=== PATIENT | male | born 2005 | race Caucasian/White ===

== ENCOUNTER 2025-03-04 09:50 | Outpatient (AMB) | payer BC, SELFPAY ==
--- NOTE | 2025-03-04 10:13 | MHC.PC.OV ---
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 Allergies naproxen [From Aleve] Allergy (Intermediate, Verified 03/04/25 10:18) Hives Medication List - Last Reconciled 03/04/25 by Richard Simmons MD albuterol sulfate 90 mcg/actuation 2 puffs inhalation Q6H PRN cetirizine (Zyrtec) 10 mg PO DAILY PRN fluticasone propionate 50 mcg/actuation (Flonase Allergy Relief) 1 spray intranasal DAILY lisdexamfetamine (Vyvanse) 20 mg PO DAILY Tobacco use date assessed: 03/04/25 Dental Screening Dental Screen Date: 03/04/25 Did you have a dental visit in the last 12 months?: No Did you have a dental problem in the last 6 months where you did not have access to dental care?: No Was dental information given to patient?: No 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 ?? Prior PCP:? Dr Soto @ [facility] Last office visit/CPE:? 1 yr Acute issue(s):? Est CAre ?? 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 Seasonal Allergy induced Asthma. SurgHx:?[place] teeth FHx:?Dad: Pancreatic CA. Mom: Asthma, Vertigo. SocHx:? Nonsmoker. EtOH 1-2 times a week 3 dr per episode. No drugs PFSH Medical History (Updated 03/04/25 @ 11:01 by Noe Pavon) Sinusitis Family History (Updated 03/04/25 @ 10:36 by Josefina Alba [facility] Mother Asthma High cholesterol Diabetes Maternal Grandmother High blood pressure High cholesterol Maternal Grandfather High blood pressure High cholesterol Prostate cancer Father High cholesterol Prostate cancer Paternal Grandfather High cholesterol Cardiovascular disease Alcoholism Social History Housing: House Patient Tobacco Use Status: Never used Tobacco e-Cigarette/Vaping Use: Never Used service: No Current occupational status: employed 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 1. Little interest or pleasure in doing things: not at all 2. Feeling down, depressed, or hopeless: not at all 3. Trouble falling or staying asleep, or sleeping too much: not at all 4. Feeling tired or having little energy: not at all 5. Poor appetite or overeating: not at all 6. Feeling bad about yourself - or that you are a failure or have let yourself or your family down: not at all 7. Trouble concentrating on things, such as reading the newspaper or watching television: not at all 8. Moving or speaking so slowly that other people could have noticed. Or the opposite - being so fidgety or restless that you have been moving around a lot more than usual: not at all 9. Thoughts that you would be better off or of hurting yourself in some way: not at all Total score: 0 Depression Screening Interpretation: Negative Depression Screening Done: Yes 84472 - PHQ-9 Billing: Yes Source: Developed by Drs. Samuel Maciel, Alison Rush, Carlo Goss and colleagues, with an educational shira from [employer]. Thrive Questionnaire Date Thrive assessed: 03/04/25 I am a: Patient What is your living situation today?: I have a steady place to live Within the past 12 months, did the food you bought not last and you didn't have the money to get more?: Never true Within the past 12 months, did you worry whether your food would run out before you got money to buy more?: Never true Do you have trouble paying for medicines?: No Do you have trouble getting transportation to medical appointments?: No Do you have trouble paying your heating and electricity bill?: No Do you have trouble taking care of your child, family member or friend?: No Do you have trouble with day-to-day activities such as bathing, preparing meals, shopping, managing finances, etc.?: No Are you currently unemployed and looking for a job?: No Are you interested in more education?: No Please select the resources that you would like help with: None Currently or been in a relationship where the following occur: No concerns reported THRIVE Score: 0 AUDIT C Alcohol Use Questionnaire (AUDIT-C) 1. How often do you have a drink containing alcohol?: 2-4 times a month 2. How many drinks containing alcohol do you have on a typical day when you are drinking?: 3 or 4 3. How often do you have six or more drinks on one occasion?: Never Total Score: 3 Score Reviewed/Action Taken: Yes SANYA-7 AMB Questionnaire SANYA-7 Date SANYA - 7 assessed: 03/04/25 Feeling nervous, anxious, or on edge: 0 = Not at all Not being able to stop or control worryin = Not at all Worrying too much about different things: 0 = Not at all Trouble relaxin = Not at all Being so restless that it is hard to sit still: 0 = Not at all Becoming easily annoyed or irritable: 0 = Not at all Feeling afraid as if something awful might happen: 0 = Not at all Total SANYA-7 score (0-4 normal; 5-9 mild; 10-14 moderate; 15-21 severe): 0 Source: Developed by Drs. Samuel Maciel, Alison Rush, Carlo Goss and colleagues, with an educational shira from [employer]. Review of Systems Const Denies chills, Denies fatigue, Denies fever(s), Denies headache(s) and Denies weakness Eyes Denies change in vision ENT Denies dizziness and Denies headache(s) Card Denies chest pain, Denies lightheadedness, Denies dyspnea and Denies other (Palpitations) Resp Denies cough, Denies dyspnea, Denies wheezing and Denies other ( shortness of breath) GI Denies abdominal pain, Denies melena, Denies hematochezia, Denies change in bowel habits, Denies dyspepsia and Denies nausea Denies hematuria and Denies dysuria Musc Denies numbness and Denies tingling Skin/Breast Denies rash, Denies unusual bruising and Denies wounds Neuro Denies dizziness, Denies headache(s), Denies numbness, Denies Sensory deficit (Neuro), Denies tingling, Denies paresthesias and Denies weakness Psych Denies anxiety and Denies depression Endo Denies fatigue Stephen/Lymph Denies easy bleeding and Denies easy bruising Aller/Immun Denies wheezing Physical exam (Primary Care) Vital Signs: Last Vital Signs Temp 98.4 F 03/04/25 10:39 Pulse 75 03/04/25 10:39 Resp 16 03/04/25 10:39 BP 122/60 03/04/25 10:39 Pulse Ox 97 03/04/25 10:39 Oxygen Delivery Method Room Air 03/04/25 10:39 BMI result Body Mass Index 21.3 Tobacco/Smoking Status: Tobacco use Status Tobacco use date assessed 03/04/25 03/04/25 10:23 Patient Tobacco Use Status Never used Tobacco 03/04/25 10:23 e-Cigarette/Vaping Use Never Used 03/04/25 10:23 PHQ-9: PHQ-9 Score PHQ-9: Total score 0 03/04/25 10:33 Depression Screening Interpretation: Negative Thrive Assessment: Date of Thrive Assessment Date Thrive assessed 03/04/25 03/04/25 10:23 Currently or been in a relationship where the following occur: No concerns reported Const General: no acute distress and well developed Nutritional Appearance: well nourished Orientation/consciousness: patient oriented x3 HENMT Head: Yes normocephalic and Yes atraumatic Ears: hearing grossly normal bilaterally and TM's normal bilaterally General nose exam: Normal external nose present and Normal nares present Mouth: Normal oral and palatal mucosa present and moist mucous membranes Teeth and gingiva: dentition normal Throat: Yes posterior oropharynx normal Eyes General: appearance normal, both eyes and all related structures Pupils: Equal, round and reactive pupils present EOM: EOMs intact bilaterally Neck Neck: Yes normal visual inspection, Yes no lymphadenopathy and Yes trachea midline Thyroid: Thyroid normal Carotids: no bruits Lymphatic: no lymphadenopathy noted Chest Chest palpation & inspection: normal inspection of the chest Resp Effort & Inspection: normal respiratory effort Auscultation: clear to auscultation bilaterally Cardio Rate: regular rate Rhythm: regular rhythm Heart sounds: S1 normal heart sound present, S2 normal heart sound present, no gallops, no murmurs and no rubs Bruits: no abdominal aortic bruits and no carotid bruits GI Palpation (GI): No Abdominal aortic bruit present, Soft to palpation, nontender, No hepatosplenomegaly present and No Rebound tenderness present Auscultation: normal bowel sounds General: Yes no CVA tenderness Back/Spine/Pelvis Back: no CVA tenderness Cervical Spine: cervical ROM normal and No Cervical spine tenderness Thoracic/Lumbar Spine: thoraco-lumbar ROM normal, No pain with thoraco-lumbar ROM, No thoracic spinal tenderness and No lumbar spinal tenderness Skin Lesions: no lesions Rashes: no rashes Trauma: no lacerations or abrasions Wounds: no wounds Nails: normal Neuro General: patient oriented x3 and gait normal Cranial nerves: Yes Equal, round and reactive pupils present Cognition (Neuro): normal cognition Gait exam (Neuro): Normal gait present Motor exam (neuro): 5/5 motor strength present throughout Sensory Exam: No Sensory deficit (Neuro) Deep tendon reflexes (DTR's): Right patellar reflex intensity grade: 2+ and Left patellar reflex intensity grade: 2+ Extrem General: Yes normal to inspection and No edema Psych Appearance: grossly normal Affect: normal affect Attitude: cooperative Thought process: Normal thought process present Coding Level of Care Code New Pt Level 3 (97307) New Pt Prev Care 18-39yr(09303 Diagnoses Adult general medical exam Z00.00 Difficulty concentrating R41.840 Asthma J45.909 Abdominal discomfort R10.9 Additional Codes PHQ-9 - 84031 - PHQ-9 Billing: Yes ([id number]) Assessment & Plan Assessment & Plan (1) Adult general medical exam: Code(s): Z00.00 - Encounter for general adult medical examination without abnormal findings Category: Medical Plan: 19-year-old?male presents?as?new?patient?for?complete?physical?exam Exam?within?normal?limits (2) Difficulty concentrating: Code(s): R41.840 - Attention and concentration deficit Category: Medical Plan: History?of?difficulty?concentrating?and?patient?notes?childhood?ADD He?is?no?longer?treated?for?this?and?says?he?has?not?needed?medication?or?treatment?since?he?finished?school. (3) Asthma: Code(s): J45.909 - Unspecified asthma, uncomplicated Category: Medical Plan: Patient?is?breathing?easily?and?lungs?are?clear?to?auscultation?bilaterally?today. Avoid?allergy?triggers?and?continue?inhaled?medication Stable (4) Abdominal discomfort: Code(s): R10.9 - Unspecified abdominal pain Category: Medical Plan: History?of?gastrointestinal?problems?with certain?foods?including?wheat?and?apples. Patient?manage?this?by?avoiding?trigger?foods He?will?let?me?know?if?he?has?any?further?problems. Orders: Orders LDL Cholesterol Direct Today E78.5 - Hyperlipidemia, unspecified CT NG by PCR Today Z11.3 - Encounter for screening for infections with a predominantly sexual mode of transmission HIV Ab/Ag Today Z11.3 - Encounter for screening for infections with a predominantly sexual mode of transmission Hepatitis B,C Profile Today Z11.3 - Encounter for screening for infections with a predominantly sexual mode of transmission Syphilis Screen Today Z11.3 - Encounter for screening for infections with a predominantly sexual mode of transmission Comprehensive [place]. Panel Fast Today Z00.00 - Encounter for general adult medical examination without abnormal findings Lipid Panel Today Z00.00 - Encounter for general adult medical examination without abnormal findings Microalbumin, Random (w Creat) Today I10 - Essential (primary) hypertension TSH reflex Free T4 Today Z00.00 - Encounter for general adult medical examination without abnormal findings UA CC w/rflx Micro + Cult Today Z00.00 - Encounter for general adult medical examination without abnormal findings
[2025-03-04 10:39] VITALS: BP 122/60; PULSE 75; RESP 16; TEMP 36.9; O2SAT 97; BMI 21.3
--- OUTSIDE RECORDS SUMMARY | 2025-03-04 11:14 | XMS_ITS | Encounter Summary ---
Author Organization [facility] Address [address] [place], [place] [id number] Phone Care Team Providers Care [employer] Guidance Counselor Name Role Phone Marianne Soto MD Primary Care Provider [phone] Encounter Details Date Type Department Care Team (Late st Contact Info) Description 12/08/2010 Documentation [facility] Family Medicine [address] [place] [address] Family Medicine, Physician [address] [place], [place] [id number] Social History Tobacco Use Types Packs/Day Years Used Date Smoking Tobacco: Never Assessed Sex and Gender Information Value Date Recorded Sex Assigned at Male 09/17/2019 2:42 PM EST Legal Sex Male 5:07 PM EDT Gender Identity Male 09/17/2019 2:42 PM EST Sexual Orientation Straight 09/17/2019 2: 42 PM EST documented as of this encounter Plan of Treatment Not on file documented as of this encounter Visit Diagnoses Not on filedocumented in this encounter Care Teams [employer] Guidance Counselor Relationship Specialty Start Date End Date Marianne Soto MD [address] [place] [address] PCP - General Pediatrics 12/31/20 05/13/24 documented as of this encounter
--- OUTSIDE RECORDS SUMMARY | 2025-03-04 11:14 | XMS_ITS | Encounter Summary ---
Author Organization [facility] Address [address] [place], [place] [phone] Phone Care Team Providers Care Candle Extrusion Machine Operator Name Role Phone Marianne Soto MD Primary Care Provider [phone] Encounter Details Date Type Department Care Team (Late st Contact Info) Description 10/06/2010 Documentation [facility] [place] [place] Medicine [address] [place] [address] Family Medicine, Physician [address] [place], [place] [address] Social History Tobacco Use Types Packs/Day Years [...] on filedocumented in this encounter Care Teams Candle Extrusion Machine Operator Relationship Specialty Start Date End Date Marianne Soto MD [address] [place] [address] PCP - General Pediatrics 12/31/20 05/13/24 documented as of this encounter
--- OUTSIDE RECORDS SUMMARY | 2025-03-04 11:14 | XMS_ITS | Encounter Summary ---
Author Organization [facility] Address [address] [place], [place] [phone] Phone Care Team Providers Care Baler Operator Name Role Phone Marianne Soto MD Primary Care Provider [phone] Encounter Details Date Type Department Care Team (Late st Contact Info) Description 11/25/[address] [facility] [place] [address] [place] [address] Family Medicine, Physician [address] [place], [place] [address] Social History Tobacco Use Types Packs/Day Years [...] on filedocumented in this encounter Care Teams Baler Operator Relationship Specialty Start Date End Date Marianne Soto MD [address] [place] [address] PCP - General Pediatrics 12/31/20 05/13/24 documented as of this encounter
--- OUTSIDE RECORDS SUMMARY | 2025-03-04 11:14 | XMS_ITS | Encounter Summary ---
Author Organization [facility] Address [address] [place] [address] Phone Care Team Providers Care Credit Assistant Name Role Phone Marianne Soto MD Primary Care Provider [phone] Reason for Visit * Reason Comments Med Refill Encounter Details Date Type Department Care Team (Late st Contact Info) Description 10/28/2021 Refill [facility] [address] [place] [address] Marianne Soto MD [address] [place] [address] Mild intermittent asthma without complication Social History Tobacco Use Types Packs/Day Years Used Date Smoking Tobacco: Never Smokeless Tobacco: Never Comments:Never smoker Alcohol Use Standard Drinks/Week Comments No 0 (1 standard drink = 0.6 oz pur e alcohol) Hunger/Food Answer Date Recorded In the last 12 months, did y ou or your family ever eat less than you felt you should because there wasn't enough money for food? No 09/25/2020 Stable Housing Answer Date Recorded Are you worried that in the next 2 months you may not have stable housing? No 09/25/2020 Transportation Concerns Answer Date Rec orded In the last 12 months, have you or your family ever had to go without healthcare because you didn't have a way to get there? No 09/25/2020 Hazards in Home Answer Date Recorded Think about the place you li ve. Do you have problems with any of the following? Pests (mice or roaches), mold, no/not working smoke detectors, water leaks, no window guards. No 2019 Financing Utilities Answer Date Recorde d In the last 12 months, has t he electric, gas, oil, or water company threatened to shut off your services in your home? No 09/25/2020 Safety at Home Answer Date Recorded Are you or your family worried about feeling saf e in your home? No 09/25/2020 Outside Support Answer Date Recorded Do you feel that you need mo re support from other people or programs to help you care for yourself or your family? No 09/25/2020 Understanding Health Concerns Answer Da te Recorded Do you need help understandi ng your or your child's healthcare needs (diagnosis, medications, plan, etc.)? No 09/25/2020 Financing Health Concerns Answer Date R ecorded In the last 12 months, was t here a time when your child needed to see a doctor or get medications or supplies but could not because of cost? No 09/25/2020 Missing School or Work Answer Date Steve rded Did you or your child miss s chool or work because of a health problem that could have been avoided? No 09/25/2020 Sex and Gender Information Value Date Recorded Sex Assigned at Male 09/17/2019 2:42 PM EST Legal Sex Male 5:07 PM EDT Gender Identity Male 09/17/2019 2:42 PM EST Sexual Orientation Straight 09/17/2019 2: 42 PM EST documented as of this encounter Miscellaneous Notes * Telephone Encounter - Marianne Soto MD - 10/30/2021 3:54 AM EST Rx reviewed and e-prescribed to pharmacy. * Telephone Encounter - Geeta Del Castillo LPN - 10/28/2021 12:04 PM EST Refill request for inhaler. Last filled 02/05/20. Next appt for PE 11/19/21. Script cued to pcp for signature. documented in this encounter Plan of Treatment Not on file documented as of this encounter Visit Diagnoses Diagnosis Mild intermittent asthma without complication documented in this encounter Care Teams Credit Assistant Relationship Specialty Start Date End Date Marianne Soto MD [address] [place] [address] PCP - General Pediatrics 12/31/20 05/13/24 documented as of this encounter
--- OUTSIDE RECORDS SUMMARY | 2025-03-04 11:15 | XMS_ITS | Encounter Summary ---
Author Organization [facility] Address [address] [place] [phone] Phone Care Team Providers Care Records Analyst Name Role Phone Marianne Soto MD Primary Care Provider [phone] Encounter Details Date Type Department Care Team (Late st Contact Info) Description 06/23/2017 Conversion Encounter [facility] [address] [place] [address] Social History Tobacco Use Types Packs/Day Years Used Date Smoking Tobacco: Never Comments:Never smoker Sex and Gender Information Value Date Recorded Sex Assigned at Male 09/17/2019 2:42 PM EST Legal Sex Male 5:07 PM EDT Gender Identity Male 09/17/2019 2:42 PM EST Sexual Orientation Straight 09/17/2019 2: 42 PM EST documented as of this encounter Plan of Treatment Not on file documented as of this encounter Visit Diagnoses Not on filedocumented in this encounter Care Teams Records Analyst Relationship Specialty Start Date End Date Marianne Soto MD [address] [place] [address] PCP - General Pediatrics 12/31/20 05/13/24 documented as of this encounter
--- OUTSIDE RECORDS SUMMARY | 2025-03-04 11:15 | XMS_ITS | Encounter Summary ---
Author Organization [facility] Address [address] [place], [place] [phone] Phone Care Team Providers Care Roller Engraver Name Role Phone Marianne Soto MD Primary Care Provider [phone] Encounter Details Date Type Department Care Team (Late st Contact Info) Description 12/08/[address] [facility] [place] Family Medicine [address] [place] [address] Family Medicine, Physician [address] [place], [place] [address] Social History Tobacco Use Types Packs/Day Years [...] on filedocumented in this encounter Care Teams Roller Engraver Relationship Specialty Start Date End Date Marianne Soto MD [address] [place] [address] PCP - General Pediatrics 12/31/20 05/13/24 documented as of this encounter
--- OUTSIDE RECORDS SUMMARY | 2025-03-04 11:15 | XMS_ITS | Clinical Summary ---
Author Organization [facility] Address [address] [place] [address] Phone Care Team Providers Care Frontend Engineer Name Role Phone Unavailable Primary Care Provider Unavailabl e Allergies Active Allergy Reactions Criticality Noted Date Comments Environmental Shortness of breath High Rabbit dander Food Diarrhea,Abdominal pain Low 09/25/2020 Oats, apple, soy and wheat Naproxen 11/10/2023 Possible allergy. Seen by [facility]. Avoiding naproxen. Medications cetirizine 10 MG tablet Take by mouth. 6 Active melatonin tablet Take by mouth. 5 Active ibuprofen 200 MG tablet Take 400 mg by mouth every 6 (six) hours as needed for mild pain. Active Spacer/Aero-Holdi ng Chambers (AeroChamber Mini Chamber) deviceIndications :Mild intermittent asthma without complication 1 Units every 4 (four) hours as needed (Use with all MDI medications). 1 each 1 3 Active albuterol HFA 108 (90 Base) MCG/ACT inhalerIndication s:Mild intermittent asthma without complication Inhale 2 puffs every 4 (four) hours as needed for wheezing. 1 Units 3 Active albuterol HFA 108 (90 Base) MCG/ACT inhalerIndication s:Mild intermittent asthma without complication Inhale 2 puffs every 4 (four) hours as needed for wheezing or shortness of breath. 1 Units 4 Active Active Problems Problem Noted Date Diagnosed Date Food allergy 11/10/2023 Overview (11/10/2023): 10/06/2023 AIANE: allergy to amoxicillin and Naproxen. Amoxicillin skin test negative. Plan to schedule amoxicillin challenge. Avoid Naproxen. Consider re- testing to apple, wheat, soy, and oat. Apple c/w oral allergy (can eat it cooked). Avoid raw apple, all oat, soy, and wheat. Continue zyrtec and flonase Drug allergy 11/10/2023 Overview (02/06/2024): 10/06/2023 AIANE: allergy to amoxicillin and Naproxen. Amoxicillin skin test negative. Plan to schedule amoxicillin challenge. Avoid Naproxen. Consider re- testing to apple, wheat, soy, and oat. Apple c/w oral allergy (can eat it cooked). Avoid raw apple, all oat, soy, and wheat. Continue zyrtec and flonase 01/23/2024 Passed oral challenge for amoxicillin Diarrhea 09/25/2020 Overview (09/25/2020): Episodic diarrhea, possibly IBS, allergic. Has seen Dr Aditya santoyo 06 February 2020 F/u pending Decreased visual acuity 09/25/2020 Overview (09/25/2020): Wear glasses or contacts Mild intermittent asthma without complication Overview (09/08/2017): Albuterol only. Assessment & Plan (11/25/2023 12:52 PM EST): Albuterol prn. No issues at this time. Assessment & Plan (01/19/2023 2:33 PM EDT): Refilled today with spacer for PRN use Allergic rhinitis 09/08/2017 Overview (11/10/2023): Using zyrtec 10/06/2023 AIANE: allergy to amoxicillin and Naproxen. Amoxicillin skin test negative. Plan to schedule amoxicillin challenge. Avoid Naproxen. Consider re- testing to apple, wheat, soy, and oat. Apple c/w oral allergy (can eat it cooked). Avoid raw apple, all oat, soy, and wheat. Continue zyrtec and flonase ADHD (attention deficit hyperactivity disorder) 04/06/2015 Assessment & Plan (02/01/2022 12:38 PM EDT): Reviewed. Not refilled in many months. Darryl states that he takes it only on days that he feels he needs it. Eprescribed. Assessment & Plan (01/15/2021 5:46 PM EST): Doing well on a low dose of vyvanse, 20 mg daily. No need to change at this time. Mom will call when he is ready for a refill. Med check in July, WCC in September. Resolved Problems Problem Noted Date Diagnosed Date Resolved Date Dysthymia 09/08/2017 09/14/2018 Overview (09/08/2017): 09/23 - Elevated scores on YPSC-17 and PSC 13. About half the days just suck . Some thoughts of harming himself without a plan He don snot want tt talk more about this. He declines counseling. Immunizations Immunization Administration Dates Next Due DTaP 5 05/17/2007, 5,2003,09/04,2003 H1N1 12/01/2009,09/10/2009 HPV Vaccine 9 Valent 09/08/2017,09/07/2016 Hep A, ped/adol 09/02/2014,06/01/2011 Hep B, ped/adol 01/29/2004,2003,2003 Hib (HbOC) 08/26/2004 Hib (PRP-T) 2003,2003,2003 IPV 05/17/2007,2003,2003 Influenza Split 08/15/2012,08/09/2011,09/21/2010 Influenza, injectable, MDCK, preservative free, quadrivalent 11/13/2022 Influenza, injectable, quadrivalent 09/07/2016,1 Influenza, injectable, quadr ivalent, preservative free 11/25/2023,09/11/2021,08/13/2020,08/22,08/23/2018,09/08/2017 Influenza, injectable, trivalent 009,09/11/2008,09/29/2005,11/11 Influenza, intranasal, quadrivalent 08/05/2014,0 08/01/2013 MMR 05/14/2004 MMRV 05/17/2007 Meningococcal Conj (Menactra) MCV4P 09/17/2019,1 Pneumococcal Conjugate 08/26/2004,2002,2003,07/10 Td (adult) (MBL), 2 Lf tetan us toxoid, PF, adsorbed 12/03/2019 Tdap 09/02/2014 Varicella 05/14/2004 Family History Medical History Relation Name Comments Anxiety disorder Father Kvng Bipolar disorder Father Kvng Depression Father Kvng DARCY disease Father Kvng Hyperlipidemia Father Kvng Irritable bowel syndrome Father Kvng Prostate cancer Father Kvng Crohn's disease Father's Sister Anemia Mother Chayo Alfonso Asthma Mother Chayo Krystynazenon Deafness Mother Chayo Kaden Diabetes Mother Chayo Alfonso Relation Name Status Comments Father Kvng Alive Father: Hyperli pidemia, ADD/ADHD, GERD, Irritable bowel disease, Hole in heart Father's Brother (Age 37) Sudden Cardiac Father's Sister Mother Chayo Alfonso Alive Mother: D eafness, Asthma Other Family history of CVA (Stroke), Family history of ADD/ADHD, No family history of Heart disease, Family history of Obesity, Family history of Seizure disorder, No family history of Strabismus, No family history of Developmental dislocation of hip, Family history of Hyperlipidemia, Family history of Sudden /ND under age 55, Family history of Cancer - prostate, lung, stoma, No family history of Migraines, Family history of Diabetes mellitus Social History Tobacco Use Types Packs/Day Years Used Date Smoking Tobacco: Never Smokeless Tobacco: Never Tobacco Cessation:Counseling Given: Yes Comments:Never smoker Alcohol Use Standard Drinks/Week Comments No 0 (1 standard drink = 0.6 oz pur e alcohol) Hunger/Food Answer Date Recorded In the last 12 months, did y ou or your family ever eat less than you felt you should because there wasn't enough money for food? No 11/25/2023 Stable Housing Answer Date Recorded Are you worried that in the next 2 months you may not have stable housing? No 11/25/2023 Transportation Concerns Answer Date Rec orded In the last 12 months, have you or your family ever had to go without healthcare because you didn't have a way to get there? No 11/25/2023 Hazards in Home Answer Date Recorded Think about the place you li ve. Do you have problems with any of the following? Pests (mice or roaches), mold, no/not working smoke detectors, water leaks, no window guards. No 2023 Financing Utilities Answer Date Recorde d In the last 12 months, has t he electric, gas, oil, or water company threatened to shut off your services in your home? No 11/25/2023 Safety at Home Answer Date Recorded Are you or your family worried about feeling saf e in your home? No 11/25/2023 Outside Support Answer Date Recorded Do you feel that you need mo re support from other people or programs to help you care for yourself or your family? No 11/25/2023 Understanding Health Concerns Answer Da te Recorded Do you need help understandi ng your or your child's healthcare needs (diagnosis, medications, plan, etc.)? No 11/25/2023 Financing Health Concerns Answer Date R ecorded In the last 12 months, was t here a time when your child needed to see a doctor or get medications or supplies but could not because of cost? No 11/25/2023 Missing School or Work Answer Date Steve rded Did you or your child miss s chool or work because of a health problem that could have been avoided? No 11/25/2023 Sex and Gender Information Value Date Recorded Sex Assigned at Male 09/17/2019 2:42 PM EST Legal Sex Male 5:07 PM EDT Gender Identity Male 09/17/2019 2:42 PM EST Sexual Orientation Straight 09/17/2019 2: 42 PM EST Last Filed Vital Signs Vital Sign Reading Time Taken Comments Blood Pressure 122/74 11/25/2023 8:56 AM EST Pulse 67 11/25/2023 8:56 AM EST Temperature 36.2 ??C (97.2 ??F) 11/25/2023 8:56 AM ES T Respiratory Rate - - Oxygen Saturation 100% 01/19/2023 2:14 PM EDT Inhaled Oxygen Concentration - - Weight 58.8 kg (129 lb 9.6 oz) 11/25/2023 8:56 A M EST Height 168.2 cm (5' 6.22 ) 11/25/2023 8:56 AM ES T Body Mass Index 20.78 11/25/2023 8:56 AM EST Plan of Treatment Health Maintenance Due Date Last Done Comments Men B Vaccine (1 of 2 - Standard) 2019 Influenza Vaccines (#1) 2024 11/25/19, 11/13/2022, 09/11/2021, Additional history exists COVID-19 Vaccine (2023-2 5 season) 2024 11/01/2021, 03/02/2021, 02/08/2021 DTaP,Tdap,and Td Vaccines (8 - Td or Tdap) 12/03/2029 12/03/2019, 09/02/2014, 05/17/2007, Additional history exists Hepatitis B Vaccines Completed 01/29/2004, 2003, 2003 HIB Vaccines Completed 08/26/2004, 10/09, 2003, Additional history exists Pneumococcal Vaccine Completed 08/26/2004, 2003, 2003, Additional history exists IPV Vaccines Completed 05/17/2007, 08/08, 2003 MMR Vaccines Completed 05/17/2007, 05/14/2004 Varicella Vaccines Completed 05/17/2007, 05/14/2004 Hepatitis A Vaccines Completed 09/02/2014, 06/01/20 11 HPV Vaccines Completed 09/08/2017, 09/07/2016 Meningococcal Vaccine Completed 09/17/2019, 014
== END 2025-03-04 11:30 | disposition home or self-care (01) ==
PROVIDERS: PCP Family Medicine; Visit Provider Family Medicine
DX: Z00.00 Encounter for general adult medical examination without abnormal findings (principal); R41.840 Attention and concentration deficit; J45.909 Unspecified asthma, uncomplicated; R10.9 Unspecified abdominal pain

== ENCOUNTER 2025-03-04 09:50 | Outpatient (REF) | payer BC, SELFPAY ==
--- OUTSIDE RECORDS SUMMARY | 2025-03-04 13:37 | XMS_ITS | Encounter Summary ---
Author Organization [facility] Address [address] [place], [place] [phone] Phone Care Team Providers Care Machine Turner Name Role Phone Marianne Soto MD Primary Care Provider [phone] Encounter Details Date Type Department Care Team (Late st Contact Info) Description 12/08/2010 Documentation [facility] [place] Family Medicine [address] [place] [address] Family Medicine, Physician [address] [place], [place] [id number] Social History Tobacco Use Types Packs/Day Years [...] on filedocumented in this encounter Care Teams Machine Turner Relationship Specialty Start Date End Date Marianne Soto MD [address] [place] [address] PCP - General Pediatrics 12/31/20 05/13/24 documented as of this encounter
--- OUTSIDE RECORDS SUMMARY | 2025-03-04 13:37 | XMS_ITS | Encounter Summary ---
Author Organization [facility] Address [address] [place] [address] Phone Care Team Providers Care Exchange Operator Name Role Phone Marianne Soto MD Primary Care Provider [phone] Encounter Details Date Type Department Care Team (Late st Contact Info) Description 06/23/2017 Conversion Encounter [facility] [address] [place] [address] Social History Tobacco Use Types Packs/Day Years [...] on filedocumented in this encounter Care Teams Exchange Operator Relationship Specialty Start Date End Date Marianne Soto MD [address] [place] [address] PCP - General Pediatrics 12/31/20 05/13/24 documented as of this encounter
--- OUTSIDE RECORDS SUMMARY | 2025-03-04 13:37 | XMS_ITS | Encounter Summary ---
Author Organization [facility] Address [address] [place], [place] [phone] Phone Care Team Providers Care Skatesman Name Role Phone Marianne Soto MD Primary Care Provider [phone] Encounter Details Date Type Department Care Team (Late st Contact Info) Description 10/06/2010 Documentation [facility] [place] Family Medicine [address] [place] [address] Family Medicine, Physician [address] [place], [place] [address] Social History Tobacco Use Types Packs/Day Years [...] on filedocumented in this encounter Care Teams Skatesman Relationship Specialty Start Date End Date Marianne Soto MD [address] [place] [address] PCP - General Pediatrics 12/31/20 05/13/24 documented as of this encounter
--- OUTSIDE RECORDS SUMMARY | 2025-03-04 13:37 | XMS_ITS | Encounter Summary ---
Author Organization [facility] Address [address] [place], [place] [address] Phone Care Team Providers Care Group Fitness Instructor Name Role Phone Marianne Soto MD Primary Care Provider [phone] Encounter Details Date Type Department Care Team (Late st Contact Info) Description 12/08/2010 Documentation [facility] [place] Family Medicine [address] [place] [address] Family Medicine, Physician [address] [place], [place] [address] Social History Tobacco Use Types Packs/Day Years [...] on filedocumented in this encounter Care Teams Group Fitness Instructor Relationship Specialty Start Date End Date Marianne Soto MD [address] [place] [address] PCP - General Pediatrics 12/31/20 05/13/24 documented as of this encounter
--- OUTSIDE RECORDS SUMMARY | 2025-03-04 13:37 | XMS_ITS | Encounter Summary ---
Author Organization [facility] Address [address] [place], [place] [phone] Phone Care Team Providers Care Lead Driver Name Role Phone Marianne Soto MD Primary Care Provider [phone] Encounter Details Date Type Department Care Team (Late st Contact Info) Description 11/25/2010 Documentation [facility] [place] Family Medicine [address] [place] [address] Family Medicine, Physician [address] [place], [place] [address] Social History Tobacco Use Types Packs/Day Years [...] on filedocumented in this encounter Care Teams Lead Driver Relationship Specialty Start Date End Date Marianne Soto MD [address] [place] [address] PCP - General Pediatrics 12/31/20 05/13/24 documented as of this encounter
--- OUTSIDE RECORDS SUMMARY | 2025-03-04 13:37 | XMS_ITS | Clinical Summary ---
Author Organization [facility] Address [address] [place] [address] Phone Care Team Providers Care Educational Psychology Professor Name Role Phone Unavailable Primary Care Provider [...] history of Hyperlipidemia, Family history of Sudden /OK under age 55, Family history of Cancer [...]
--- OUTSIDE RECORDS SUMMARY | 2025-03-04 13:37 | XMS_ITS | Encounter Summary ---
Author Organization [facility] Address [address] [place] [address] Phone Care Team Providers Care Melter Helper Name Role Phone Marianne Soto MD Primary Care Provider Reason for Visit * Reason Comments Med Refill Encounter Details Date Type Department Care Team (Late st Contact Info) Description 10/28/2021 Refill [facility] [place] [address] [place] [address] Marianne Soto MD [address] [place] [address] Mild intermittent asthma without complication Social History [...] complication documented in this encounter Care Teams Melter Helper Relationship Specialty Start Date End Date Marianne Soto MD [address] [place] [address] PCP - General Pediatrics 12/31/20 05/13/24 documented as of this encounter
[2025-03-04 14:26] LABS: Appearance Urine Clear; Color Urine Yellow; Glucose Urine UA Negative (Negative); Leukocyte Esterase Urine Negative (Negative); Nitrite Urine Negative (Negative); PH 5.5 (5.0-9.0); Specific Gravity - Urine 1.025 (1.005-1.025); Urine Blood Negative (Negative); Urine Ketones Negative (Negative); Urine Protein Negative (Neg-Trace)
[2025-03-04 14:46] LABS: Alanine Aminotransferase 15 U/L (0-40); Albumin Level 4.7 g/dL (3.5-5.0); Alkaline Phosphatase 46 U/L (39-117); Anion Gap 11 (12-20); Aspartate Amino Transferase 21 U/L (5-37); Bilirubin Total 0.7 mg/dL (0.0-1.0); Blood Urea Nitrogen 12 mg/dL (9-16); Calcium 9.2 mg/dL (8.4-10.2); Carbon Dioxide 28 mmol/L (22-29); Chloride 106 mmol/L (96-108); Cholesterol 202 mg/dL (<200); Estimated Glomerular Filt Rate > 60; Glucose Fasting 92 mg/dL (60-99); HDL Cholesterol 56 mg/dL (>40); LDL Cholesterol Calculated 135 mg/dL (<100); Sodium 141 mmol/L (135-145); TSH reflex Free T4 1.31 uIU/mL (0.32-4.0); Total Protein 7.4 g/dL (6.5-8.0); Triglycerides 58 mg/dL (<150)
[2025-03-04 14:48] LABS: Creatinine Urine 186.69 mg/dL; Microalbum/Creatinine Ratio Ur 3.2 ug/mg cr (<30)
[2025-03-05 07:51] LABS: HBS Num1 0.43 mIU/mL (0-7.99); HBc Num1 0.11 S/CO (0.00-0.79); HBsAGNum1 0.44 S/CO (0.00-0.99); HIV AB/AG Nonreactive (Nonreactive); HIV Num 1 0.07 S/CO (0.00-0.99); Hepatitis B Core Antibody Nonreactive (Nonreactive); Hepatitis B Surface Antigen Negative (Negative); ~HepC Num1 0.19 S/CO (0.00-0.79); ~Hepatitis B Surface Antibody NONREACTIVE (Nonreactive); ~Hepatitis C Antibody Nonreactive (Nonreactive)
[2025-03-05 08:32] LABS: Syphilis Screen Nonreactive (Nonreactive)
[2025-03-05 13:47] LABS: LDL Cholesterol Direct 126 mg/dL (<100)
== END 2025-03-04 09:51 | disposition home or self-care (01) ==
LOC: HO.WFDLDS 09:50
PROVIDERS: PCP Family Medicine; Visit Provider Family Medicine
DX: Z00.00 Encounter for general adult medical examination without abnormal findings (principal); R41.840 Attention and concentration deficit; J45.909 Unspecified asthma, uncomplicated; R10.9 Unspecified abdominal pain; E78.5 Hyperlipidemia, unspecified; I10 Essential (primary) hypertension; Z11.3 Encounter for screening for infections with a predominantly sexual mode of transmission
CPT/HCPCS: 36415; 80053; 80061; 81003; 82043; 82570; 83721; 84443; 86704; 86706; 86780; 86803; 87340; 87389; 96127

== ENCOUNTER 2025-07-24 16:16 | Outpatient (AMB) | payer BC, SELFPAY ==
--- NOTE | 2025-07-24 16:09 | MHC.PC.OV ---
Intake Visit Reasons: f/u CPE-labs via telemedicine Intake Note: Patient presents for a telehealth appointment to go over his labs from February. Allergies naproxen (From Aleve) Allergy (Intermediate, Verified 07/24/25 16:11) Hives Tobacco use date assessed: 07/24/25 Dental Screening Dental Screen Date: 07/24/25 Did you have a dental visit in the last 12 months?: Yes Did you have a dental problem in the last 6 months where you did not have access to dental care?: Yes Was dental information given to patient?: Patient declined HPI f/u CPE-labs via telemedicine HPI Details 20 y/o male presents to f/ labs via telemedicine. Labs drawn 03/04/25. Reviewed labs with pt. Triglycerides 58. TC 202. LDL 126. HDL 56. PFSH Medical History (Updated 07/24/25 @ 17:03 by Noe Pavon) Sinusitis Family History Mother Asthma High cholesterol Diabetes Maternal Grandmother High blood pressure High cholesterol Maternal Grandfather High blood pressure High cholesterol Prostate cancer Father High cholesterol Prostate cancer Paternal Grandfather High cholesterol Cardiovascular disease Alcoholism Social History (Updated 07/24/25 @ 16:12 by Yanira Chacon CMA) Housing: House Alcohol intake: never Patient Tobacco Use Status: Never used Tobacco e-Cigarette/Vaping Use: Never Used Second Hand Smoke Exposure: No Use of substances other than those prescribed or required for medical reasons: No service: No Current occupational status: employed 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 Samuel Maciel, Alison Rush, Carlo Goss and colleagues, with an educational shira from [employer]. Physical exam (Primary Care) Tobacco/Smoking Status: Tobacco use Status Tobacco use date assessed 07/24/25 07/24/25 16:13 Patient Tobacco Use Status Never used Tobacco 07/24/25 16:11 e-Cigarette/Vaping Use Never Used 07/24/25 16:11 Thrive Assessment: Date of Thrive Assessment Date Thrive assessed 03/04/25 07/24/25 16:09 Telehealth Telehealth Telehealth Platform: Telephone Location of provider rendering services: practice address Location of patient: address on file Patient Identification confirmed using: Name, : Yes Telehealth method: voice only Patient verbally consented to treatment: Yes Patient verbally consented to billing insurance company: Yes Patient informed of any privacy concerns related to visit: Yes Minutes spent on Phone/Video with Pt.: 5 Coding Level of Care Code Tele Est Pt Level 2 (01259) Diagnoses Elevated LDL cholesterol level E78.00 Assessment & Plan Assessment & Plan (1) Elevated LDL cholesterol level: Code(s): E78.00 - Pure hypercholesterolemia, unspecified Category: Medical Plan: LDL cholesterol is too high Encouraged a diet lower in saturated fats and cholesterol We will recheck in about 2 months Orders: Orders Lipid Panel Today E78.00 - Pure hypercholesterolemia, unspecified, Z00.00 - Encounter for general adult medical examination without abnormal findings Comprehensive [place]. Panel Fast Today E78.00 - Pure hypercholesterolemia, unspecified, Z00.00 - Encounter for general adult medical examination without abnormal findings
--- OUTSIDE RECORDS SUMMARY | 2025-07-24 19:18 | XMS_ITS | Encounter Summary ---
Author Organization [facility] Address [address] [place], [place] [address] Phone Care Team Providers Care Registered Nurse Fetal Name Role Phone Marianne Soto MD Primary Care Provider [phone] Encounter Details Date Type Department Care Team (Late st Contact Info) Description 11/25/2010 Documentation [facility] [place] [address] [place] [address] Family Medicine, Physician [address] [place], [place] [address] Social History Tobacco Use Types Packs/Day Years [...] on filedocumented in this encounter Care Teams Registered Nurse Fetal Relationship Specialty Start Date End Date Marianne Soto MD [address] [place] [address] PCP - General Pediatrics 12/31/20 05/13/24 documented as of this encounter
--- OUTSIDE RECORDS SUMMARY | 2025-07-24 19:18 | XMS_ITS | Clinical Summary ---
Author Organization [facility] Address [address] [place] [address] Phone Care Team Providers Care Unload Associate Name Role Phone Unavailable Primary Care Provider [...] history of Hyperlipidemia, Family history of Sudden /RI under age 55, Family history of Cancer [...] 67 11/25/2023 8:56 AM EST Temperature 36.2 C (97.2 F) 11/25/2023 8:56 AM EST Respiratory Rate - - Oxygen Saturation 100% [...] 2 - Standard) 2019 Influenza Vaccines (#1) 2025 11/25/19, 11/13/2022, 09/11/2021, Additional history exists COVID-19 Vaccine ( - 2024-2 6 season) 2025 11/01/2021, 03/02/2021, 02/08/2021 DTaP,Tdap,and Td Vaccines (8 [...]
--- OUTSIDE RECORDS SUMMARY | 2025-07-24 19:18 | XMS_ITS | Encounter Summary ---
Author Organization [facility] Address [address] [place], [place] [address] Phone Care Team Providers Care Computer Technology Trainer Name Role Phone Marianne Soto MD Primary Care Provider [phone] Encounter Details Date Type Department Care Team (Late st Contact Info) Description 10/06/2010 Documentation [facility] [place] Family Medicine [address] [place] [address] Family Medicine, Physician [address] [place], [place] [address] Social History Tobacco Use Types Packs/Day Years [...] on filedocumented in this encounter Care Teams Computer Technology Trainer Relationship Specialty Start Date End Date Marianne Soto MD [address] [place] [address] PCP - General Pediatrics 12/31/20 05/13/24 documented as of this encounter
--- OUTSIDE RECORDS SUMMARY | 2025-07-24 19:18 | XMS_ITS | Encounter Summary ---
Author Organization [facility] Address [address] [place], [place] [phone] Phone Care Team Providers Care Information Developer Name Role Phone Marianne Soto MD Primary Care Provider [phone] Encounter Details Date Type Department Care Team (Late st Contact Info) Description 12/08/2010 Documentation [facility] [place] Family Medicine [address] [place] [address] Family Medicine, Physician [address] [place], [place] [address] Social History Tobacco Use Types Packs/Day Years [...] on filedocumented in this encounter Care Teams Information Developer Relationship Specialty Start Date End Date Marianne Soto MD [address] [place] [address] PCP - General Pediatrics 12/31/20 05/13/24 documented as of this encounter
--- OUTSIDE RECORDS SUMMARY | 2025-07-24 19:18 | XMS_ITS | Encounter Summary ---
Author Organization [facility] Address [address] [place] [address] Phone Care Team Providers Care Metrology Manager Name Role Phone Marianne Soto MD Primary Care Provider [phone] Reason for Visit * Reason Comments Med Refill Encounter Details Date Type Department Care Team (Late st Contact Info) Description 10/28/2021 Refill [facility] [place] [address] [place] [address] Marianne Soto MD [address] [place] [address] Mild intermittent asthma without complication Social History [...] complication documented in this encounter Care Teams Metrology Manager Relationship Specialty Start Date End Date Marianne Soto MD [address] [place] [address] PCP - General Pediatrics 12/31/20 05/13/24 documented as of this encounter
--- OUTSIDE RECORDS SUMMARY | 2025-07-24 19:18 | XMS_ITS | Encounter Summary ---
Author Organization [facility] Address [address] [place], [place] [address] Phone Care Team Providers Care Multi Spindle Operator Name Role Phone Marianne Soto MD Primary Care Provider [phone] Encounter Details Date Type Department Care Team (Late st Contact Info) Description 12/08/2010 Documentation [facility] [place] [address] [place] [address] Family Medicine, Physician [address] [place], [place] [address] Social History Tobacco Use Types Packs/Day Years [...] on filedocumented in this encounter Care Teams Multi Spindle Operator Relationship Specialty Start Date End Date Marianne Soto MD [address] [place] [address] PCP - General Pediatrics 12/31/20 05/13/24 documented as of this encounter
--- OUTSIDE RECORDS SUMMARY | 2025-07-24 19:18 | XMS_ITS | Encounter Summary ---
Author Organization [facility] Address [address] [place] [id number] Phone Care Team Providers Care Automobile Racer Name Role Phone Marianne Soto MD Primary Care Provider [phone] Encounter Details Date Type Department Care Team (Late st Contact Info) Description 06/23/2017 Conversion Encounter [facility] [address] [place] [address] Social History Tobacco Use Types Packs/Day Years [...] on filedocumented in this encounter Care Teams Automobile Racer Relationship Specialty Start Date End Date Marianne Soto MD [address] [place] [address] PCP - General Pediatrics 12/31/20 05/13/24 documented as of this encounter
== END 2025-07-24 17:05 | disposition home or self-care (01) ==
LOC: HO.HMCFM 16:16
PROVIDERS: PCP Family Medicine; Visit Provider Family Medicine
DX: E78.00 Pure hypercholesterolemia, unspecified (principal)